=== PATIENT | male | born 1995 | race American Indian/Alaskan Native ===

== ENCOUNTER 2017-04-17 14:50 | Emergency (ER) | payer OTHER ==
[~2017-04-17] VITALS: Ht 175.3 cm; Wt 93.4 kg
[2017-04-17] MEDS ORDERED: ROBA500T PO (16:28)
[2017-04-17] MEDS ORDERED: IBUP80TA PO (16:28)
[2017-04-17] MEDS ORDERED: KETOROLAC 60 MG/2 ML VIAL (J1885) IM ONE (16:30)
[2017-04-17] MEDS ORDERED: METHOCARBAMOL 500 MG TAB PO ONE (16:30)
[2017-04-17 16:50] VITALS: BP 136/71
== END 2017-04-17 16:53 | disposition home or self-care (01) ==
LOC: M ED 16:24
DX: G44.209 Tension-type headache, unspecified, not intractable (principal)
CPT/HCPCS: 96372; 99282; J1885

== ENCOUNTER → 2018-04-23 | Outpatient (CLI) | payer OTHER | LOC: M RAD 12:25 | DX: J34.89 Other specified disorders of nose and nasal sinuses (principal); R93.0 Abnormal findings on diagnostic imaging of skull and head, not elsewhere classified | CPT/HCPCS: 70486 ==